=== PATIENT | female | born 1955 | race Caucasian/White ===

== ENCOUNTER 2022-08-13 11:03 | Emergency (ER) | payer MEDICARE ==
[~2022-08-13] VITALS: Ht 154.9 cm; Wt 108.9 kg
[~2022-08-13 11:03] MED LIST: FISH OIL1 IU; NAPROSYN500 MG PO; SINGULAIR10 MG PO; SYNTHROID,LEV100 MCG PO; ZITHROMAX Z PA250 MG PO; ZOCOR40 MG; ZYRTEC
[2022-08-13 11:29] VITALS: BP 158/66
[2022-08-13] MEDS ORDERED: COREG25 MG PO (11:45)
[2022-08-13] MEDS ORDERED: LASIX20 MG PO (11:45)
[2022-08-13] MEDS ORDERED: K-TAB10 MEQ PO (11:46)
[2022-08-13] MEDS ORDERED: METFORMIN HYDR500 MG PO (11:46)
[2022-08-13] MEDS ORDERED: COZAAR25 M1 PO (11:46)
[2022-08-13 12:10] LABS: BASO % 0.4 % (0.0-1.0); EOS # 0.1 10*3/uL (0.0-0.4); EOS % 1.2 % (1.0-4.0); HEMATOCRIT 38.1 % (37.0-47.0); LYMPH # 0.9 10*3/uL (1.3-4.4); LYMPH % 12.4 % (27.0-41.0); MEAN CELL VOLUME 84.9 fl (81.0-99.0); MEAN CORPUSCULAR HGB 28.3 pg (27.0-31.0); MEAN CORPUSCULAR HGB CONC 33.3 g/dl (33.0-37.0); MEAN PLATELET VOLUME 10.1 fl (9.6-12.3); MONO # 0.4 10*3/uL (0.1-1.0); MONO % 4.7 % (3.0-9.0); NEUT # 6.2 10*3/uL (2.3-7.9); PLATELET COUNT AUTOMATED 216 10*3/uL (130-400); RED BLOOD COUNT 4.49 10*6/uL (4.10-5.10); RED CELL DISTRI WIDTH 12.8 % (0-14.5); WHITE BLOOD COUNT 7.6 10*3/uL (4.8-10.8)
[2022-08-13 12:25] LABS: ALKALINE PHOSPHATASE 61 U/L (46-116); BUN 16 mg/dl (9-23); CHLORIDE 105 mmol/L (98-107); CREATININE 0.77 mg/dL (0.55-1.02); LIPASE 30 U/L (12-53); POTASSIUM 4.1 mmol/L (3.4-5.1); SGPT/ALT 9 U/L (10-49); SODIUM 139 mmol/L (136-145); TOTAL PROTEIN 7.1 gm/dL (6.0-8.0)
[2022-08-13] MEDS ORDERED: NAPROSYN500 MG PO (13:20)
== END 2022-08-13 13:20 | disposition home or self-care (01) ==
LOC: ED 11:03
PROVIDERS: Nurse Practitioner Family
DX: S39.011A Strain of muscle, fascia and tendon of abdomen, initial encounter (principal); Z20.822 Contact with and (suspected) exposure to COVID-19; Z88.6 Allergy status to analgesic agent; Z79.899 Other long term (current) drug therapy; X50.1XXA Overexertion from prolonged static or awkward postures, initial encounter; Y93.89 Activity, other specified; Y92.89 Other specified places as the place of occurrence of the external cause; Y99.8 Other external cause status

== ENCOUNTER 2023-03-02 13:06 | Emergency (ER) | payer MEDICARE ==
[~2023-03-02] VITALS: Ht 154.9 cm; Wt 104.3 kg
[~2023-03-02 13:06] MED LIST changes: +COREG25 MG PO; +COZAAR25 M1 PO; +K-TAB10 MEQ PO; +LASIX20 MG PO; +METFORMIN HYDR500 MG PO
[2023-03-02 13:11] VITALS: BP 157/82
[2023-03-02 14:04] LABS: BASO % 0.3 % (0.0-1.0); EOS % 0.5 % (1.0-4.0); HEMATOCRIT 37.7 % (37.0-47.0); LYMPH # 1.4 10*3/uL (1.3-4.4); LYMPH % 17.6 % (27.0-41.0); MEAN CELL VOLUME 83.6 fl (81.0-99.0); MEAN CORPUSCULAR HGB 28.6 pg (27.0-31.0); MEAN CORPUSCULAR HGB CONC 34.2 g/dl (33.0-37.0); MEAN PLATELET VOLUME 10.2 fl (9.6-12.3); MONO # 0.6 10*3/uL (0.1-1.0); NEUT # 5.7 10*3/uL (2.3-7.9); NEUT % 72.1 % (47.0-73.0); PLATELET COUNT AUTOMATED 217 10*3/uL (130-400); RED BLOOD COUNT 4.51 10*6/uL (4.10-5.10); RED CELL DISTRI WIDTH 12.8 % (0-14.5); WHITE BLOOD COUNT 7.9 10*3/uL (4.8-10.8)
[2023-03-02 14:27] LABS: ALKALINE PHOSPHATASE 60 U/L (46-116); BUN 17 mg/dl (9-23); CHLORIDE 100 mmol/L (98-107); POTASSIUM 3.9 mmol/L (3.4-5.1); SGPT/ALT 12 U/L (10-49); TOTAL PROTEIN 7.1 gm/dL (6.0-8.0)
== END 2023-03-02 15:34 | disposition home or self-care (01) ==
LOC: ED 13:06
PROVIDERS: Physician Assistant Medical
DX: S16.1XXA Strain of muscle, fascia and tendon at neck level, initial encounter (principal); R51.9 Headache, unspecified; R11.0 Nausea; H92.03 Otalgia, bilateral; Z88.6 Allergy status to analgesic agent; Z79.899 Other long term (current) drug therapy; X58.XXXA Exposure to other specified factors, initial encounter; Y93.89 Activity, other specified; Y92.89 Other specified places as the place of occurrence of the external cause; Y99.8 Other external cause status